=== PATIENT | female | born 1960 | race African-American/Black ===

== ENCOUNTER 2017-09-26 10:43 | Emergency (ER) | payer MEDICARE, MEDICAID ==
[~2017-09-26] VITALS: Ht 157.5 cm; Wt 50.0 kg
[~2017-09-26 10:43] MED LIST: ABIL5 PO
[2017-09-26] MEDS ORDERED: ALBUTEROL (0.083%) 2.5MG/3ML NEB HHN STA (11:03)
[2017-09-26] MEDS ORDERED: LEVOFLOXACIN 500MG TABLET PO ONE (12:15)
[2017-09-26 13:14] VITALS: BP 124/71
== END 2017-09-26 13:16 | disposition home or self-care (01) ==
LOC: ER 10:51
DX: J18.9 Pneumonia, unspecified organism (principal); J44.0 Chronic obstructive pulmonary disease with (acute) lower respiratory infection; F20.9 Schizophrenia, unspecified
CPT/HCPCS: 71045; 94640; 99283; J7611

== ENCOUNTER 2024-08-31 10:39 | Emergency (ER) | payer BC, MEDICAID ==
[~2024-08-31] VITALS: Ht 157.5 cm; Wt 45.0 kg
[2024-08-31 10:40] VITALS: PULSE 109; TEMP 36.7; O2SAT 99
[2024-08-31] MEDS: KETOROLAC 30MG/ML VIAL IM STA (13:00)
[2024-08-31 15:37] VITALS: BP 97/51; RESP 18
[2024-08-31] MEDS: LIDOCAINE 5% PATCH TOP SCH (15:37)
[2024-08-31] MEDS ORDERED: IBUP-2029 MT (15:38)
== END 2024-08-31 16:16 | disposition home or self-care (01) ==
LOC: ER 10:57
DX: M54.2 Cervicalgia (principal); F20.9 Schizophrenia, unspecified; I10 Essential (primary) hypertension; W19.XXXA Unspecified fall, initial encounter; Y93.89 Activity, other specified; Y92.89 Other specified places as the place of occurrence of the external cause; Y99.8 Other external cause status
CPT/HCPCS: 99283; 72040; 96372; J1885